=== PATIENT | male | born 1945 | race Caucasian/White ===

== ENCOUNTER 2017-11-20 07:43 | Emergency (ER) | payer MEDICARE ==
[~2017-11-20] VITALS: Ht 185.4 cm; Wt 90.7 kg
[~2017-11-20 07:43] MED LIST: ASPI81CH PO; Aspir-Trin325 MG PO; Aspirin EC81 MG; Cardizem CD 24240 MG PO; DILTIAZEM 24HR120 MG PO; DILTIAZEM 24HR240 MG PO; DIPH50; FLUT.05NI; GABA300; Geritol Comple1 EACH; Glucosamine 1,1 EACH PO; HYDR1TAB94 PO; Hydrocodone-Ap1 EA23 PO; LIDOCAINE700 MG TP; LISI5; LISI5 PO; MELA3; METF500 PO; METO50ER PO; NAPR220 PO; NITR.4SL SL; NITR.6SL SL; Naproxen500 MG PO; ROSU10TA PO; UBID10; XARELTO20 MG PO; [UNRECOGNIZED DRUG - OTHER]
== END 2017-11-20 08:06 | disposition home or self-care (01) ==
LOC: ER 07:43
DX: S20.362A Insect bite (nonvenomous) of left front wall of thorax, initial encounter (principal); Z87.891 Personal history of nicotine dependence; Z79.899 Other long term (current) drug therapy; Z88.8 Allergy status to other drugs, medicaments and biological substances; Z79.82 Long term (current) use of aspirin; W57.XXXA Bitten or stung by nonvenomous insect and other nonvenomous arthropods, initial encounter; I10 Essential (primary) hypertension; I35.0 Nonrheumatic aortic (valve) stenosis; I51.7 Cardiomegaly
CPT/HCPCS: 93306; 99282

== ENCOUNTER → 2018-02-26 | Outpatient (CLI) | payer MEDICARE ==
[2018-02-26 13:41] LABS: BASOPHILS ABSOLUTE AUTO 0.03 K/mm3 (0.00-0.23); BASOPHILS PERCENT AUTO 0 % (0-2); EOSINOPHILS ABSOLUTE AUTO 0.04 K/mm3 (0.00-0.68); EOSINOPHILS PERCENT AUTO 0 % (0-6); Hematocrit 37.8 % (37.0-53.0); Hemoglobin 12.9 g/dL (13.5-17.5); IMMATURE GRAN ABSOLUTE AUTO 0.05 K/mm3 (0.00-0.10); IMMATURE GRAN PERCENT AUTO 1 % (0-1); LYMPHOCYTES ABSOLUTE AUTO 0.93 K/mm3 (0.84-5.20); LYMPHOCYTES PERCENT AUTO 9 % (21-46); MONOCYTES ABSOLUTE AUTO 1.13 K/mm3 (0.16-1.47); MONOCYTES PERCENT AUTO 10 % (4-13); Mean Corpuscular HGB 32.7 pg (26.0-34.0); Mean Corpuscular HGB Conc 34.1 g/dL (31.5-36.5); Mean Corpuscular Volume 96 fL (80-100); Mean Platelet Volume 9.2 fL (9.1-12.4); NEUTROPHILS PERCENT AUTO 80 % (41-73); Platelet Count 236 K/mm3 (150-400); RDW Coefficient Variation 12.4 % (11.7-14.2); RDW Standard Deviation 42.9 fL (35.1-46.3); Red Blood Cell Count 3.95 M/mm3 (4.30-5.90); White Blood Cell Count 10.98 K/mm3 (4.00-11.30)
[2018-02-26 13:55] LABS: Bun/Creatinine Ratio 13.8 (12.0-20.0); Creatinine, Blood 1.3 mg/dL (0.60-1.20)
== END | disposition home or self-care (01) ==
LOC: LAB SHORT 13:36 → LAB EV 13:36
PROVIDERS: Family Medicine
DX: J06.9 Acute upper respiratory infection, unspecified (principal)
CPT/HCPCS: 80048; 85025

== ENCOUNTER → 2020-06-28 | Outpatient (CLI) | payer MEDICARE ==
[2020-06-28 13:37] LABS: Creatinine, Urine Random 67.5 mg/dL (27.00-270.00); Microalb/Creat Ratio UR, Rand 14.178 mg/g (0.000-30.000); Microalbumin, Random Urine 9.57 mg/L (0.000-20.000)
== END | disposition home or self-care (01) ==
LOC: LAB 11:00 → LAB SHORT 11:00
PROVIDERS: Hospitalist
DX: I10 Essential (primary) hypertension (principal)
CPT/HCPCS: 82043; 82570

== ENCOUNTER 2020-10-11 06:40 | Day surgery (SDC) | payer MEDICARE ==
[~2020-10-11] VITALS: Ht 182.9 cm; Wt 121.0 kg
[~2020-10-11 06:40] MED LIST changes: +Flovent Diskus50 MCG; -GABA300; +GABA300 PO; +LISI20 PO
[2020-10-11] MEDS ORDERED: MELA3 PO (07:36)
[2020-10-11] MEDS ORDERED: [UNRECOGNIZED DRUG - OTHER] PO (07:40)
--- NOTE | 2020-10-11 08:57 | NUR ---
[facility]A&O. right radial site with TR band in place.
--- NOTE | 2020-10-11 11:00 | NUR ---
DISCHARGE: PT REMAINED A&OX3 AND DENIED ANY PAIN DURING RECOVERY. RIGHT RADIAL SITE TR BAND REMOVED-REPLACED WITH CLOTH DOT AND WHITE [id number] HEMATOMA NOTED. IV DC'D WITH CANULA IN TACT. PT UP TO RESTROOM WITH STEADY GAIT. DISCHARGE PAPERWORK GONE OVER WITH PT AND SPOUSE. PT AND SPOUSE VERBALLY STATED THE UNDERSTANDING OF THE DISCHARGE EDUCATION AND DENIED ANY QUESTIONS AT THIS TIME. PT AMBULATED OUT TO PRIVATE CAR WITH THIS NURSE.
== END 2020-10-11 11:00 | disposition home or self-care (01) ==
LOC: MHTC 06:40
DX: I35.0 Nonrheumatic aortic (valve) stenosis (principal); I25.10 Atherosclerotic heart disease of native coronary artery without angina pectoris; E78.2 Mixed hyperlipidemia; I10 Essential (primary) hypertension; G47.33 Obstructive sleep apnea (adult) (pediatric); E11.9 Type 2 diabetes mellitus without complications; Z86.79 Personal history of other diseases of the circulatory system
CPT/HCPCS: 76937; 93454; 99152; 99153; C1769; C1894; J1644; J2250; J3010; J7030; J7050; Q9967

== ENCOUNTER 2024-11-03 12:48 | Emergency (ER) | payer MEDICARE ==
[~2024-11-03] VITALS: Ht 182.9 cm; Wt 104.3 kg
[~2024-11-03 12:48] MED LIST changes: +AZIT250 PO; +MELA3 PO; +Tessalon200 MG PO; +[UNRECOGNIZED DRUG - OTHER] PO
[2024-11-03] MEDS ORDERED: NS 1,000 ML IV SCH (14:40)
[2024-11-03 15:03] LABS: Source, Urine Clean Catch
[2024-11-03 15:04] LABS: BASOPHILS ABSOLUTE AUTO 0.03 K/mm3 (0.00-0.23); BASOPHILS PERCENT AUTO 1 % (0-2); EOSINOPHILS PERCENT AUTO 0 % (0-6); Hematocrit 26.8 % (37.0-53.0); Hemoglobin 8.7 g/dL (13.5-17.5); IMMATURE GRAN ABSOLUTE AUTO 0.02 K/mm3 (0.00-0.10); IMMATURE GRAN PERCENT AUTO 1 % (0-1); LYMPHOCYTES ABSOLUTE AUTO 0.29 K/mm3 (0.84-5.20); LYMPHOCYTES PERCENT AUTO 10 % (21-46); MONOCYTES ABSOLUTE AUTO 0.53 K/mm3 (0.16-1.47); MONOCYTES PERCENT AUTO 19 % (4-13); Mean Corpuscular HGB 29.4 pg (26.0-34.0); Mean Corpuscular HGB Conc 32.5 g/dL (31.5-36.5); Mean Corpuscular Volume 91 fL (80-100); NEUTROPHILS ABSOLUTE AUTO 1.97 K/mm3 (1.96-9.15); NEUTROPHILS PERCENT AUTO 69 % (41-73); Platelet Count 101 K/mm3 (150-400); RDW Coefficient Variation 16.1 % (11.7-14.2); RDW Standard Deviation 53.7 fL (35.1-46.3); Red Blood Cell Count 2.96 M/mm3 (4.30-5.90); White Blood Cell Count 2.84 K/mm3 (4.00-11.30)
[2024-11-03 15:15] LABS: Base Excess Venous -3.1 mmol/L; Bicarbonate Venous 22.1 mmol/L (24.0-30.0); PCO2 Venous 36.7 mmHg (38-42); pH Blood Venous 7.39 (7.34-7.37)
[2024-11-03 15:17] LABS: Albumin, Blood 2.8 g/dL (3.4-5.0); Albumin/Globulin Ratio 0.8 (0.8-1.8); Bilirubin, Total 0.6 mg/dL (0.1-1.0); Bun/Creatinine Ratio 19.9 (12.0-20.0); Calcium, Blood 7.3 mg/dL (8.5-10.1); Creatinine, Blood 1.46 mg/dL (0.60-1.20); Globulin, Blood 3.5 g/dL (2.2-4.0); Magnesium, Blood 1.6 mg/dL (1.6-2.4); Potassium, Blood 4.2 mmol/L (3.5-5.5); Total Protein, Blood 6.3 g/dL (6.4-8.2)
[2024-11-03 15:26] LABS: Bilirubin, Urine Neg (Neg); Blood, Urine 2+ (Neg); Color, Urine Yellow (P-Yellow); Glucose Qualitative, Urine Neg (Neg); Ketones, Urine Neg (Neg); Leukocyte Esterase, Urine Neg (Neg); Nitrite, Urine Neg (Neg); Protein, Urine 3+ (Neg); Urobilinogen, Urine NORM (Normal)
[2024-11-03] MEDS ORDERED: ACYC400 PO (15:31)
[2024-11-03] MEDS ORDERED: AMLO5 PO (15:32)
[2024-11-03] MEDS ORDERED: ALBU90OI INH (15:32)
[2024-11-03] MEDS ORDERED: DECADRON4 M1 PO (15:34)
[2024-11-03] MEDS ORDERED: ELIQUIS5 M2 PO (15:34)
[2024-11-03] MEDS ORDERED: FLONASE ALLERG9.9 M2 (15:37)
[2024-11-03] MEDS ORDERED: FURO20 PO (15:37)
[2024-11-03] MEDS ORDERED: LENALIDOMIDE PO (15:37)
[2024-11-03] MEDS ORDERED: Prinivil10 MG PO (15:38)
[2024-11-03] MEDS ORDERED: Aspir 8181 MG PO (15:38)
[2024-11-03] MEDS ORDERED: ONDA8 PO (15:39)
[2024-11-03] MEDS ORDERED: METF500C PO (15:39)
[2024-11-03] MEDS ORDERED: METO50ER PO (15:39)
[2024-11-03] MEDS ORDERED: ACET500 PO (15:40)
[2024-11-03 15:50] LABS: Appearance, Urine Hazy (Clear); Bacteria Many /hpf; Mucus Mod (0-Heavy); Squamous Epithelial Cells Rare /hpf (Few); White Blood Cells, Urine 0-2 /hpf (0-5)
[2024-11-03 15:51] LABS: Amorphous Mod (0-Heavy); Hyaline Casts 0-2 /lpf (0-2)
[2024-11-03 15:57] LABS: Influenza B, PCR NEGATIVE (NEGATIVE); Resp Syncytial Virus, PCR NEGATIVE (NEGATIVE); SARS-Cov-2 (COVID-19) PCR, MMC NEGATIVE (NEGATIVE)
[2024-11-03 15:58] LABS: Influenza A, PCR POSITIVE (NEGATIVE)
[2024-11-03] MEDS ORDERED: ONDA4ODT MM (16:48)
[2024-11-03 16:54] VITALS: BP 107/70
== END 2024-11-03 17:24 | disposition home or self-care (01) ==
LOC: ER 12:48
PROVIDERS: Student in an Organized Health Care Education/Training Program
DX: J10.1 Influenza due to other identified influenza virus with other respiratory manifestations (principal); E86.0 Dehydration; R41.0 Disorientation, unspecified; I10 Essential (primary) hypertension; I25.2 Old myocardial infarction; G47.30 Sleep apnea, unspecified; I48.91 Unspecified atrial fibrillation; E11.9 Type 2 diabetes mellitus without complications; E78.5 Hyperlipidemia, unspecified; M19.90 Unspecified osteoarthritis, unspecified site; Z87.891 Personal history of nicotine dependence; Z79.01 Long term (current) use of anticoagulants; Z85.79 Personal history of other malignant neoplasms of lymphoid, hematopoietic and related tissues; Z88.1 Allergy status to other antibiotic agents; Z88.8 Allergy status to other drugs, medicaments and biological substances; Z79.899 Other long term (current) drug therapy; Z79.82 Long term (current) use of aspirin
CPT/HCPCS: 0241U; 71046; 80053; 81001; 82140; 82803; 83605; 83735; 85025; 87040; 87086; 93005; 93010; 96360; 99285-25; J7030

== ENCOUNTER 2025-01-25 18:17 | Inpatient (IN) | payer MEDICARE ==
[~2025-01-25] VITALS: Ht 185.4 cm; Wt 101.0 kg
[2025-01-30 07:22] VITALS: BP 134/73
== END 2025-01-30 11:30 | disposition home or self-care (01) | DRG 871 ==
LOC: ER 18:17 → MEDS 23:01
PROVIDERS: ADMIT Internal Medicine
PROC: 3E03329 Introduction of Other Anti-infective into Peripheral Vein, Percutaneous Approach (ICD-10-PCS; principal; 2025-01-25)
PROC: 5A09357 Assistance with Respiratory Ventilation, Less than 24 Consecutive Hours, Continuous Positive Airway Pressure (ICD-10-PCS; 2025-01-30)
DX: A41.9 Sepsis, unspecified organism (principal); G93.41 Metabolic encephalopathy; I50.21 Acute systolic (congestive) heart failure; J18.9 Pneumonia, unspecified organism; F05 Delirium due to known physiological condition; I48.19 Other persistent atrial fibrillation; C90.00 Multiple myeloma not having achieved remission; R65.20 Severe sepsis without septic shock; E11.9 Type 2 diabetes mellitus without complications; I25.10 Atherosclerotic heart disease of native coronary artery without angina pectoris; E78.5 Hyperlipidemia, unspecified; N40.0 Benign prostatic hyperplasia without lower urinary tract symptoms; G47.33 Obstructive sleep apnea (adult) (pediatric); I11.0 Hypertensive heart disease with heart failure; M19.90 Unspecified osteoarthritis, unspecified site; Z95.2 Presence of prosthetic heart valve; Z88.6 Allergy status to analgesic agent; Z88.8 Allergy status to other drugs, medicaments and biological substances; Z79.01 Long term (current) use of anticoagulants; Z79.52 Long term (current) use of systemic steroids; Z79.899 Other long term (current) drug therapy; Z79.84 Long term (current) use of oral hypoglycemic drugs; Z79.82 Long term (current) use of aspirin; I25.2 Old myocardial infarction; Z85.828 Personal history of other malignant neoplasm of skin; Z87.891 Personal history of nicotine dependence

== ENCOUNTER 2025-04-18 10:37 | Inpatient (IN) | payer MEDICARE ==
[~2025-04-18] VITALS: Ht 182.9 cm; Wt 96.7 kg
[~2025-04-18 10:37] MED LIST changes: +ACET500 PO; +ACYC400 PO; +ALBU90OI INH; +AMLO5 PO; +AMOCLA875 PO; +Aspir 8181 MG PO; +CENTRUM SILVER1 EAC2 PO; +DECADRON4 M1 PO; +ELDERBERRY350 MG PO; +ELIQUIS5 M2 PO; +FLONASE ALLERG9.9 M2; +FURO20 PO; +GLIP5 PO; +LENALIDOMIDE PO; +METF500C PO; +ONDA4ODT MM; +ONDA8 PO; +Prinivil10 MG PO; +SUPER B-50 COM1 EACH PO
[2025-04-18] MEDS ORDERED: Morphine Sulfate 4 MG/1 ML Injection IV ONE (11:05)
[2025-04-18] MEDS ORDERED: NS 1,000 ML IV SCH (11:05)
[2025-04-18 11:45] LABS: BASOPHILS ABSOLUTE AUTO 0.01 K/mm3 (0.00-0.23); BASOPHILS PERCENT AUTO 0 % (0-2); EOSINOPHILS ABSOLUTE AUTO 0.01 K/mm3 (0.00-0.68); EOSINOPHILS PERCENT AUTO 0 % (0-6); Hematocrit 25.6 % (37.0-53.0); Hemoglobin 7.4 g/dL (13.5-17.5); IMMATURE GRAN ABSOLUTE AUTO 0.04 K/mm3 (0.00-0.10); IMMATURE GRAN PERCENT AUTO 0 % (0-1); LYMPHOCYTES ABSOLUTE AUTO 0.51 K/mm3 (0.84-5.20); LYMPHOCYTES PERCENT AUTO 5 % (21-46); MONOCYTES ABSOLUTE AUTO 0.97 K/mm3 (0.16-1.47); MONOCYTES PERCENT AUTO 9 % (4-13); Mean Corpuscular HGB Conc 28.9 g/dL (31.5-36.5); Mean Corpuscular Volume 88 fL (80-100); NEUTROPHILS ABSOLUTE AUTO 8.86 K/mm3 (1.96-9.15); NEUTROPHILS PERCENT AUTO 85 % (41-73); NRBC ABSOLUTE 0.00 K/mm3 (0.00-0.02); NRBC Auto 0.0 /100 WBC (0.0-0.2); Platelet Count 411 K/mm3 (150-400); RDW Coefficient Variation 20.0 % (11.7-14.2); RDW Standard Deviation 62.2 fL (35.1-46.3)
[2025-04-18 12:00] LABS: Alanine Aminotransfer (ALT/SGP 20.0 U/L (12-78); Albumin, Blood 2.3 g/dL (3.4-5.0); Albumin/Globulin Ratio 0.5 (0.8-1.8); Anion Gap 10.0 mmol/L (3-11); Aspartate Aminotrans (AST/SGOT 19.0 U/L (12-37); Bilirubin, Total 0.3 mg/dL (0.1-1.0); Blood Urea Nitrogen 64.0 mg/dL (8-24); CO2, Blood 21.0 mmol/L (21-32); Calcium, Blood 8.6 mg/dL (8.5-10.1); Chloride, Blood 112.0 mmol/L (98-108); Creatinine, Blood 1.59 mg/dL (0.60-1.20); Globulin, Blood 4.2 g/dL (2.2-4.0); Glucose, Blood 84.0 mg/dL (70-99); Potassium, Blood 4.6 mmol/L (3.5-5.5); Sodium, Blood 138.0 mmol/L (136-145); Total Protein, Blood 6.5 g/dL (6.4-8.2)
[2025-04-18] MEDS ORDERED: Morphine Sulfate 10 MG/ML 1MLSYR IV PRN (13:35)
[2025-04-18] MEDS ORDERED: Albuterol 2.5 MG/3 ML VIAL INH PRN (13:40)
[2025-04-18 14:58] VITALS: BP 147/120
[2025-04-18] MEDS ORDERED: Diazepam 5 MG / ML 2ML SYR IV PRN (16:20)
[2025-04-18 19:21] VITALS: BP 87/65
--- NOTE | 2025-04-19 00:29 | NUR ---
DR. ANDERSON NOTIFIED OF PATIENT BEING PUT IN SOFT WRIST RESTRAINTS- NONVIOLATE DUE TO PULLING AT LINE, PUREWICK, TRYING TO CLIMB OUT OF BED.
--- NOTE | 2025-04-19 03:49 | NUR ---
PATIENT IS COMFORT CARE AND DNR. VALIUM AND MORPHINE GIVEN DURING SHIFT. RN OBTAINED ORDER FROM DR. ANDERSON TO PUT BACK ON NONVIOLENT SOFT WRIST RESTRAINTS DUE TO PATIENT PULLING AT IV, PUREWICK AND TRYING TO GET OUT OF BED. MALIK CATHETER WAS PLACED FOR END OF LIFE CARE. IS AT BEDSIDE. BED IS IN LOW POSITION WITH WHEELS LOCKED. BED ALARM ON. CALL LIGHT WITHIN REACH
--- NOTE | 2025-04-19 09:52 | NUR ---
DR RENEE ROUNDED ON PATIENT AND PALLIATATIVE CARE ALSO ROUNDED, COMFORT CART ORDERED, AND BROTHER AT BEDSIDE AND UPDATED AT THAT TIME
[2025-04-19] MEDS ORDERED: Atropine Sulfate 1% Opth Soln 2ML BTL SL PRN (11:00)
[2025-04-19] MEDS ORDERED: Haloperidol Lactate Inj. 5 MG/ML Injection IV PRN (11:00)
[2025-04-19] MEDS ORDERED: Morphine Sulfate 20 MG/1ML 1 ML Oral Syringe SL PRN (11:00)
--- NOTE | 2025-04-19 12:46 | NUR ---
GOALS OF CARE/SUPPORTIVE VISIT MET WITH AMANDA RAMON'S , JAY RAMON AND HIS BROTHER, LEENA RAMON OUTSIDE OF PT'S ROOM PER PROVIDER REQUEST. PT GOES BY AMANDA. AND PRIMARY RN BOTH REPORT PT HAS BEEN AGGITATED AND PULLING AT LINES. HE IS CURRENTLY IN RESTRAINTS FOR SAFETY. GOAL IS COMFORT, MANAGE AGGITATION AND REMOVE RESTRAINTS. AND PRIMARY RN REPORT PT DISPLAYED INCREASE IN AGGITATION AND IMPULSIVENESS WITH LORAZEPAM. DECREASE IN AGGITATION S/P VALIUM ADMINISTRATION. IF IV ACCESS IS LOST AND ZYPREXA ODT NOT EFFECTIVE, MAY CONSIDER CLONAZEPAM (CRUSHED AND ADMINISTERED UNDER TONGUE. JAY REPORTS SHE IS NOT ABLE TO MEET AMANDA'S NEEDS AT HOME WITH HOSPICE. JAY WAS CARING FOR HER MOTHER ON HOSPICE UNTIL SHE PASSED A COUPLE OF WEEKS AGO. 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 HE HAS NOT ACCESSED ANY BENEFITS. RCV'D VERBAL COMFORT CARE ORDERS FROM PROVIDER. ORDERS PLACED ACCORDINGLY. POLST FORM COMPLETED TO REFLECT DNR/OCCUPATIONAL NURSE. PC TO REMAIN AVAILABLE NEEDED.
--- NOTE | 2025-04-19 18:05 | NUR ---
RESTRAINTS OFF AT 1200 04/19/2025
--- NOTE | 2025-04-20 04:31 | NUR ---
SHIFT SUMMARY: PT MEDICATED PER EMAR FOR AGITATION. MALIK IN PLACE HANGING BELOW THE BLADDER AND DRAINING WITH GRAVITY. PT REPOSITIONED Q2. NO ACUTE CHANGES THIS SHIFT.
[2025-04-20] MEDS ORDERED: HYDROmorphone HCl/Pf 1MG SYR IV PRN (09:25)
--- NOTE | 2025-04-20 09:28 | NUR ---
PT LYING IN BED. UPON INITIAL ASSESSMENT REQUESTED BY BEDSIDE RN, PT EXHIBITING S/S OF UNCONTROLLED PAIN. HE WINCED AND CRIED OUT WITH ANY MOVEMENT. THE ROXANOL DOSE WAS INCREASED TO 20MG NEEDED HOURLY. DR. QURESHI PLACING PRN DILAUDID IV, TO BE USED IN CONJUNCTION WITH ROXANOL NEEDED. INSTRUCT RN TO CONTINUE WITH HOURLY ROXANOL UNTIL S/S OF PAIN IMPROVE. PT'S DAUGHTER CALLED THIS PC RN, TEARFUL, ASKING IF HER DAD IS BEING GIVEN WATER. SHE STATES CONCERN THAT HE IS NOT CURRENTLY AWAKE AND ABLE TO TAKE IN FLUIDS. WE DISCUSSED THE WORSENING HEART FAILURE, WELL PT'S UNCONTROLLED PAIN. SHE INDICATES SHE WILL BE HERE IN PERSON IN THE NEXT HOUR TO DISCUSS FURTHER. PER BEDSIDE RN, PT'S HAS BEEN AT BEDSIDE ALL MORNING AND JUST LEFT THE ROOM TO TAKE A BREAK.
--- NOTE | 2025-04-20 13:25 | NUR ---
"Spiritual Care | Comfort Care Pt. is alone. No family present when this resource manager forester comes to bedside and prays a blessing over the Pt. Will remain available to the Pt. and family."
--- NOTE | 2025-04-20 17:07 | NUR ---
SHIFT SUMMARY ON COMFORT CARE. MEDICATED PER EMAR. PT HAD A RESTLESS AND PAINFUL MORNING, PT NOW RESTING PEACEFULLY AND NOW MEDICATING APPROX Q4H WITH GOOD RESULTS. MALIK CATHETER PATENT AND DRAINING [place] COLORED URINE. FAMILY AT BEDSIDE MAJORITY OF DAY - SON DANUTA CURRENTLY AT BEDSIDE. THERAPEUTIC COMMUNICATION AND LISTENING PROVIDED TO FAMILY. FAMILY THANKFUL FOR CARE. PT MOSTLY UNRESPONSIVE - NO LONGER OPENING EYES TO STIMULI INCLUDING ORAL CARE/PERSONAL CARES. PT CURRENTLY RESTING PEACEFULLY WITH CALL LIGHT WITHIN REACH, BED IN LOWEST POSITION, AND BED ALARM ON.
--- NOTE | 2025-04-21 00:40 | NUR ---
PT SPOUSE KWABENA CALLED FOR UPDATE ON PT CONDITION. THEY WERE NOTIFIED THAT PT BREATHING HAS BECOME MORE AGONAL AND SHALLOW WITH FREQUENT PAUSES. ALSO ATROPINE DROPS USED FOR SECRETION CONTROL. SPOUSE WILL COME IN TO BE WITH PT.
--- NOTE | 2025-04-21 05:05 | NUR ---
SHIFT SUMMARY NOC PT UNRESPONSIVE. ON COMFORT CARE MEASURES. Q2H TURNS. PT USING ACCESSORY MUSCLES FOR BREATHING AND HAS BECOME MORE SHALLOW. PT GIVEN ATROPINE FOR SECRETION CONTROL. PT CAME IN AROUND 0100 THIS AM TO BE WITH PT. PT HAS MALIK IN PLACE WITH MINIMAL OUTPUT. PT CURRENTLY RESTING WITH BED ALARM ON, BED IN LOWEST POSITION, AND CALL LIGHT WITHIN REACH.
--- NOTE | 2025-04-21 15:44 | NUR ---
"SPiritual Care Visit | Comfort Care Pt. is on comfort care and is not responsive. Family is at bedside as I initiated a life review. Pt. share that they the Pt. beleived in a higher power. Further life story is encouraged. Listen with empathy and interest. Prayed for the Pt. and family. Will remain available to the Pt."
--- NOTE | 2025-04-21 15:54 | NUR ---
PT PASSED PEACEFULLY WITH FAMILY AND PALLIATIVE CARE RN AT BEDSIDE. CONFIRMED BY THIS RN AND ERNESTO PALLIATIVE CARE RN - NO PULSE OR LUNG SOUNDS AUSCULTATED FOR [address] QURESHI NOTIFIED OF PT PASSING VIA PHONE. TOD 1557. CARPET OR RUG LAYER HELPER CURRENTLY WITH FAMILY. FLUMER, ISRRAEL NOTIFIED.
--- NOTE | 2025-04-21 16:36 | NUR ---
"Spiritual Care | EOL | [facility] Pt. had passed aprpox. 1550. This municipal services manager was contacted imediately and came to bedside. Facilitated family and grief care with Pts. sister and son who are at bedside. This municipal services manager had just visited the Pt. and family shortly priod Pts. passing so the focus of this visit was on EOL Education, and next steps. After making calls to the Pts. spouse, the family has chosen [facility] in [place] as their home. Family are reaching out to the Pts. daughter who may come back to visit the Pt. in 356."
--- NOTE | 2025-04-21 17:49 | NUR ---
POST-MORTEM CARE COMPLETED - MALIK AND PIV REMOVED. BED BATH COMPLETED - CLEAN ATTENDS AND GOWN PLACED ON PT. AWAITING CALL BACK FROM [employer]. PT FAMILY CHOSE [facility].
== END 2025-04-21 15:50 | DRG 951 ==
LOC: ER 10:37 → MEDS 12:49
PROVIDERS: Physician Assistant; ADMIT Hospitalist
PROC: 0T9B70Z Drainage of Bladder with Drainage Device, Via Natural or Artificial Opening (ICD-10-PCS; principal; 2025-04-19)
DX: Z51.5 Encounter for palliative care (principal); G92.8 Other toxic encephalopathy; I50.23 Acute on chronic systolic (congestive) heart failure; I13.0 Hypertensive heart and chronic kidney disease with heart failure and stage 1 through stage 4 chronic kidney disease, or unspecified chronic kidney disease; N17.9 Acute kidney failure, unspecified; C90.00 Multiple myeloma not having achieved remission; J94.8 Other specified pleural conditions; Z66 Do not resuscitate; I25.10 Atherosclerotic heart disease of native coronary artery without angina pectoris; G47.33 Obstructive sleep apnea (adult) (pediatric); I48.91 Unspecified atrial fibrillation; N18.30 Chronic kidney disease, stage 3 unspecified; E88.09 Other disorders of plasma-protein metabolism, not elsewhere classified; D63.0 Anemia in neoplastic disease; E78.5 Hyperlipidemia, unspecified; E11.22 Type 2 diabetes mellitus with diabetic chronic kidney disease; Z60.2 Problems related to living alone; Z95.2 Presence of prosthetic heart valve; Z88.8 Allergy status to other drugs, medicaments and biological substances; Z88.6 Allergy status to analgesic agent; Z79.01 Long term (current) use of anticoagulants; Z79.899 Other long term (current) drug therapy; Z79.84 Long term (current) use of oral hypoglycemic drugs; I25.2 Old myocardial infarction; Z87.891 Personal history of nicotine dependence; Z85.828 Personal history of other malignant neoplasm of skin; Z78.1 Physical restraint status
CPT/HCPCS: 71045; 80053; 83880; 84484; 85025; 93005; 93010; 96374; 96375; 99285-25; A9270; J1171; J1630; J1938; J2270; J3360; J7030